=== PATIENT | male | born 1995 ===

== ENCOUNTER 2016-09-12 19:18 | Emergency (ER) | payer SELFPAY ==
[2016-09-12 20:12] LABS: SPECIFIC GRAVITY 1.025 (1.001-1.030); URINE BILIRUBIN NEGATIVE (NEGATIVE); URINE BLOOD 1+ (NEGATIVE); URINE GLUCOSE (UA) NEGATIVE (NEGATIVE); URINE LEUKOCYTE ESTERASE TRACE (NEGATIVE); URINE NITRITE NEGATIVE (NEGATIVE); URINE PROTEIN NEGATIVE (NEGATIVE); URINE UROBILINOGEN NORMAL (0-1 mg/dl)
[2016-09-12 20:15] LABS: URINE APPEARANCE CLEAR; URINE COLOR YELLOW
[2016-09-12 20:22] LABS: URINE BACTERIA FEW; URINE EPITHELIAL CELLS RARE /hpf; URINE MUCUS 1+; URINE WBC 15-20 /hpf
[2016-09-12] MEDS ORDERED: CEFTRIAXONE SODIUM 1 G VIAL ONE (22:36)
[2016-09-12] MEDS ORDERED: AZITHROMYCIN 250 MG TABLET ONE (22:36)
--- NOTE | 2016-09-13 07:46 | US ---
Exam: Scrotum and contents ultrasound COMPARISON: None INDICATION: Right-sided pain for one week. FINDINGS: Ultrasound evaluation of the scrotum and its contents was obtained. Right testicle measures 4.4 x 2.3 x 3.1 cm and left testicle measures 4.0 x 2.1 x 2.8 cm. Both testicles are homogeneous in echotexture and without focal mass. Blood flow is present within both testicles and appears symmetric. The right epididymal tail is heterogeneous and hypervascular compared with the left. The left epididymis is unremarkable. There is a tiny right-sided hydrocele. IMPRESSION: Right-sided epididymitis with tiny hydrocele. No sonographic evidence of orchitis, torsion or mass. Preliminary report transmitted to the emergency department from [facility] at 2223 hours 09/12/2016.
[2016-09-14 15:19] LABS: CHLAMYDIA BD Positive (Negative); N.GONORRHOEAE BD Negative (Negative); SOURCE Urine (())
== END 2016-09-12 22:55 | disposition home or self-care (01) ==
LOC: ED 19:18
DX: N45.1 Epididymitis (principal); N50.811 Right testicular pain; N34.2 Other urethritis
CPT/HCPCS: 87491; 87591; 87086; 81001; 76870; 99283 ×2; 96372; J0696; A9270